=== PATIENT | male | born 1995 ===

== ENCOUNTER 2017-01-04 16:11 | Emergency (ER) | payer OTHER ==
[2017-01-04 16:28] VITALS: BP 131/79; PULSE 111; RESP 16; TEMP 99.1; O2SAT 100
--- NOTE | 2017-01-04 17:28 | ED PDOC ---
HPI: General Adult Time Seen by Provider: 01/04/17 16:40 Chief Complaint (Nursing): Cough, Cold, Congestion History Per: Patient Additional Complaint(s): Pt. states > 10 days he's been having cough, congestion, and headache. Reports that he was initially treated with an antibiotic that starts with the letter "C " and is "300mg." Reports congestion has worsened prompting ED visit. Denies fever, head injury, trauma, sick contacts. Past Medical History Reviewed: Historical Data, Nursing Documentation, Vital Signs Vital Signs: Last Vital Signs Temp 99.1 F 01/04/17 16:19 Pulse 111 H 01/04/17 16:19 Resp 16 01/04/17 16:19 BP 131/79 01/04/17 16:19 Pulse Ox 100 01/04/17 16:19 - Family History Family History: States: No Known Family Hx - Home Medications Home Medications: Ambulatory Orders Medication Instructions Recorded Amoxicillin/Clavulanate [Augmentin 1 tab PO BID #20 tab 01/04/17 500 MG-125 MG] Oxymetazoline 0.05% [Afrin 0.05%] 2 - 3 spr NS Q12H PRN #1 bottle 01/04/17 - Allergies Allergies/Adverse Reactions: Allergies Allergy/AdvReac Type Severity Reaction Status Date / Time No Known Allergies Allergy Verified 01/04/17 16:18 Review of Systems ROS Statement: Except As Marked, All Systems Reviewed And Found Negative Physical Exam - Reviewed Nursing Documentation Reviewed: Yes Vital Signs Reviewed: Yes - Physical Exam Appears: Positive for: Well, Non-toxic, No Acute Distress Head Exam: Positive for: ATRAUMATIC, NORMAL INSPECTION, NORMOCEPHALIC Skin: Positive for: Normal Color, Warm. Negative for: Rash Eye Exam: Positive for: EOMI, Normal appearance, PERRL ENT: Positive for: TM Is/Are (non-erythematous, non-bulging b/l), Sinus Pain/ Drainage, Nasal Congestion. Negative for: Pharyngeal Erythema, Tonsillar Exudate, Tonsillar Swelling Neck: Positive for: Normal, Painless ROM Cardiovascular/Chest: Positive for: Regular Rate, Rhythm Respiratory: Positive for: Normal Breath Sounds. Negative for: Wheezing Back: Positive for: Normal Inspection Extremity: Positive for: Normal ROM Neurologic/Psych: Positive for: Alert, Oriented - ECG O2 Sat by Pulse Oximetry: 100 Disposition - Clinical Impression Clinical Impression: Sinusitis - Patient ED Disposition Is Patient to be Admitted: No - Disposition Referrals: [facility] [Outside] Disposition: Routine/Home Disposition Time: 17:15 Condition: STABLE Prescriptions: Amoxicillin/Clavulanate [Augmentin 500 MG-125 MG] 1 tab PO BID #20 tab Oxymetazoline 0.05% [Afrin 0.05%] 2 - 3 spr NS Q12H PRN #1 bottle PRN Reason: congestion Instructions: Sinusitis (ED) Print Language: GEORGIAN
== END 2017-01-04 18:27 | disposition home or self-care (01) ==
LOC: H.ER 16:11
DX: J32.9 Chronic sinusitis, unspecified (principal)